=== PATIENT | female | born 1990 | race African-American/Black ===

== ENCOUNTER 2018-03-06 09:18 | Emergency (ER) | payer MEDICAID, OTHER ==
[~2018-03-06] VITALS: Ht 157.5 cm; Wt 100.0 kg
[~2018-03-06 09:18] MED LIST: ACET-66 PO; FERR-89 PO; IBUP-2071 PO; PREN1TAB80 PO
[2018-03-06] MEDS ORDERED: NEOMYCIN/POLYMYXIN B/HYDROCORT 10 ML OTIC SOLUTION AD ONE (10:00)
[2018-03-06] MEDS ORDERED: ACETAMINOPHEN 500 MG TABLET PO ONE (10:00)
[2018-03-06 10:42] VITALS: BP 154/86
== END 2018-03-06 10:54 | disposition home or self-care (01) ==
LOC: EMS 09:19
DX: H60.91 Unspecified otitis externa, right ear (principal)
CPT/HCPCS: 99283

== ENCOUNTER 2020-06-14 14:10 | Emergency (ER) | payer OTHER ==
[~2020-06-14] VITALS: Ht 157.5 cm; Wt 100.0 kg
[~2020-06-14 14:10] MED LIST changes: -ACET-66 PO; -FERR-89 PO; -PREN1TAB80 PO
[2020-06-14] MEDS ORDERED: PROPARACAINE HCL 0.5% 15 ML OPHTHALMIC SOLUTION OU ONE (15:45)
[2020-06-14] MEDS ORDERED: FLUORESCEIN SODIUM 1 MG STRIP OU ONE (15:45)
[2020-06-14] MEDS ORDERED: NEOMYCIN/POLYMYXIN B/HYDROCORT 7.5 ML OPHTHALMIC SUSPENSION OU ONE (16:30)
[2020-06-14 16:46] VITALS: BP 170/96
== END 2020-06-14 17:10 | disposition home or self-care (01) ==
LOC: EMS 14:16
DX: H10.9 Unspecified conjunctivitis (principal)
CPT/HCPCS: Z7502; Z7610